=== PATIENT | male | born 1975 | race African-American/Black ===

== ENCOUNTER 2017-08-18 18:30 | Emergency (ER) | payer BC ==
[~2017-08-18] VITALS: Ht 208.3 cm; Wt 106.6 kg
[~2017-08-18 18:30] MED LIST: MULTI VITAMINS1 TA1 PO
[2017-08-18] MEDS ORDERED: ZITHROMAX Z-PA250 M2 PO (18:47)
--- NOTE | 2017-08-18 18:47 | Urgent Treatment Center Report ---
History of Present Issue Date/Time Seen by Provider 08/18/17 1842 Visit Reason Pt arrived: Presenting Problem: Location if Accident: Onset of symptoms date/time:/ or onset unknown for: Have you (or family members/close friends) recently traveled outside the [place]? If Yes, where/when: Have you had exposure to infectious disease within the past month? TB? Other? Specify: Source patient Exam Limitations no limitations Comment 42-year-old male presents for sore throat for 3 or 4 days. Patient's was diagnosed with strep last week and son also has had a sore throat. ALLERGIES Coded Allergies: NO KNOWN ALLERGIES (12/06/14) Home Medications Reported Medications MISCELLANEOUS (UNKNOWN MEDICATION) (Unknown Dose) PO DAILY MULTIVITAMIN (One Daily Multivitamin) 1 TAB PO DAILY History Medical History General CAD? No Angina: No [place]: No Hypertension? No Hyperlipidemia? No CHF? No DVT? No PE? No COPD? No Asthma? No Anemia? No GERD? No Gastric ulcers? No GI Bleed? No Hernia? No Thyroid Problems? No Hypothyroidism? No CVA? No Seizures? No Diabetes? No Renal Insuffiency? No UTI? No Stones? No BPH? No GB Disease: No Nephritic Syndrome? No Asplenia? No Hepatitis? No Sickle Cell Disease? No Arthritis? No Migraines? No Cataracts? No Glaucoma? No MRSA? No HIV? No TB? No Anxiety? No Depression? No Cancer? No More? No Surgical Hx Previous Surgery?N Family History Family HX Diabetes Yes Hypertension Yes Review of Systems All Other Systems Reviewed and Negative ENT see HPI, throat pain. Physical Exam Vital Signs Vital Signs Date Time Temp Pulse Resp B/P Pulse O2 O2 Flow FiO2 Ox Delivery Rate 08/18 1841 98.4 63 16 113/80 98 - WBC >12,000 or <4,000 or 10% bands? 2 or more SIRS Criteria Met? B/P:113/80 MAP:91 Creatinine >2.0? UA output<0.5ml/kg/hr for 2 hrs? Platelet count >100,000? Lactate >2.0mmol/1? INR >1.2 or PTT > than 60 sec? Evidence of Organ Dysfunction? Provider documented clinical suspician of infection? Sepsis Criteria Count: 0 Sepsis Risk: General Appearance normal appearance, no apparent distress Eye Exam - bilateral eye normal exam, bilateral eye PERRL, bilateral eye EOMI Ear, Nose, Throat hearing grossly normal, tonsillar exudate, tonsillar swelling Neck normal inspection, full range of motion Respiratory Status Yes: trachea midline, chest symmetrical, non tender chest. No: respiratory distress. Lung Sounds bilateral: normal breath sounds, lungs clear. Cardiovascular normal exam Neurologic alert, normal exam, oriented x 3 Medical Decision Making LABS/Meds/Orders Pt receiving controlled substance in ED? No Results/Orders Laboratory Tests 08/18/17 1850: Group A Strep Screen NOT DETECTED Orders Procedure Date/time Status [facility] STREP SCREEN 08/18 1848 Active Departure Departure Time of Disposition 1843 Disposition DC Home or Self Care(routine) Clinical Impression Primary Impression: Exposure to strep throat Secondary Impressions: Sore throat Condition STABLE Referrals Ihsan CONTI,Owen (Family) Patient Instructions Sore Throat Additional Instructions Contract precautions discussed with patient Antibiotics as ordered Tylenol or ibuprofen as needed for pain or fever Follow-up PCP this week If symptoms worsen or do not improve return or be seen in the ER Discharge Counseling Counseled pt/family regarding diagnosis, test results, home care, follow up needs Prescriptions Current Visit Scripts Azithromycin (Zithromax) 250 MG PO DAILY 5 Days USE DIRECTED. at 1852
[2017-08-18 19:01] VITALS: BP 113/80
--- OUTSIDE RECORDS SUMMARY | 2017-08-23 03:23 | External Medical Summary Rpt | CCD ---
Demographics Preferred Language Hebrew Marital Status Unknown Nondenominational Affiliation Unknown Race Unknown Ethnic Group Unknown Author Author , VITALIY SWIFT Address Unknown Phone Immunization Unable to retrieve immunization data due to connection failure with Immunization Registry. Please try again later.
--- OUTSIDE RECORDS SUMMARY | 2017-08-23 03:23 | External Medical Summary Rpt ---
Author Author [employer] Vanegas, JENIFFER Vanegas Organization [employer] Address Unknown Phone Unavailable
--- OUTSIDE RECORDS SUMMARY | 2017-08-23 03:23 | External Medical Summary Rpt | CCD ---
Author Author VITALIY Address Unknown Phone Purpose Continuity of Care Document - through 2016
--- OUTSIDE RECORDS SUMMARY | 2017-08-23 03:23 | External Medical Summary Rpt | CCD ---
Demographics Preferred Language Chinese Marital Status Unknown Jehovah'S Witness Affiliation Unknown Race Unknown Ethnic Group Unknown Author Author , VITALIY SWIFT Address Unknown Phone Immunization Unable to retrieve immunization data due to connection failure with Immunization Registry. Please try again later.
--- OUTSIDE RECORDS SUMMARY | 2017-08-23 03:23 | External Medical Summary Rpt | CCD ---
Author Author [employer] Organization [employer] Address Unknown Phone Unavailable Purpose Continuity of Care Document - through 2016
--- OUTSIDE RECORDS SUMMARY | 2017-08-23 03:23 | External Medical Summary Rpt | CCD ---
Author Author VITALIY Address Unknown Phone [email or web address] Purpose Continuity of Care Document - through 2016
== END 2017-08-18 19:02 | disposition home or self-care (01) ==
LOC: UTC 18:30
DX: J02.9 Acute pharyngitis, unspecified (principal)